=== PATIENT | male | born 1940 | race Caucasian/White ===

== ENCOUNTER 2019-11-22 | Emergency (ER) | payer MEDICARE, OTHER ==
[~2019-11-22] MED LIST: ACTOS45 MG PO; ALDACTONE25 MG PO; AMOX/K CLAV875 M1 PO; ANTIVERT25 MG PO; ASPIRIN LOW DOS81 MG PO; ATORVASTATI80 MG/TAB PO; BENADRYL25 M1 PO; CARVEDILOL3.125 MG PO; CEPHALEXIN500 M1 PO; CHERATUSSIN OR; COLACE100 MG PO; DEXAMETHASON4 MG PO; FLUARIX QUADRIV1 INJ IM; FLUZONE SPLT1 M1 IM; FUROSEMIDE40 MG PO; GABAPENTIN300 MG PO; GLIPIZIDE10 M2 PO; GLYBURIDE5 M1 PO; HYDRALAZINE25 MG PO; ISOSORBIDE DINI10 MG PO; JANUVIA100 MG PO; KEFLEX250 MG PO; KEFLEX500 MG PO; LEVEMIR FL100 UNIT/M SC; LEVOTHYROXIN25 MC1 PO; LISINOPRIL20 M1 PO; LISINOPRIL40 MG PO; LORTAB 5-325 MG1 TAB PO; MEDDOSEPAK OR; METFORMIN1000 MG PO; METFORMIN500 M2 PO; NITREK0.4 MG/HR TD; NITROSTAT0.4 MG SL; NOVOLO1 SC; NOVOLOG FLEXPEN SC; ONE TOUCH ULTRA 100 XX; ONGLYZA5 MG PO; PNEUMOVAX 23 IM; POTASSIUM CHLO10 MEQ PO; PRAVASTATIN20 MG PO; PROCTOCORT1 % EX; REVLIMID PO; TOUJEO SOL300 UNIT/M SC; ZOFRAN ODT4 MG PO; ZOSTAVAX SC; [UNRECOGNIZED DRUG - SUPPLY] XX
[2019-11-22 11:37] LABS: HEMATOCRIT 33.4 % (39.0-50.0); HEMOGLOBIN 10.8 g/dl (14.0-18.0); IMMATURE GRANULOCYTES 0.4 % (0.0-5.0); MEAN CELL VOLUME 96.3 fL CALC (80.0-100.0); MEAN CORPUSCULAR HGB 31.1 pG CALC (26.0-32.0); MEAN CORPUSCULAR HGB CONC 32.3 g/L CALC (32.0-36.0); NEUT# 7.75 thou/uL (1.82-7.42); RED BLOOD COUNT 3.47 mill/uL (4.70-6.10); RED CELL DISTRI WIDTH 12.3 % (11.5-15.5)
[2019-11-22 11:51] LABS: ALBUMIN 3.7 g/dL (3.2-5.0); BILIRUBIN, TOTAL 0.4 mg/dL (0.0-1.4); CREATININE 4.7 mg/dL (0.7-1.3); POTASSIUM 4.4 mmol/l (3.5-5.1); TOTAL PROTEIN 6.8 g/dL (6.3-8.2)
[2019-11-22 12:24] LABS: URINE BILIRUBIN - DIPSTICK NEGATIVE (NEGATIVE); URINE BLOOD DIPSTICK SMALL (NEGATIVE); URINE COLOR YELLOW; URINE GLUCOSE - DIPSTICK NEGATIVE (NEGATIVE); URINE KETONE NEGATIVE (NEGATIVE); URINE NITRITE - DIPSTICK NEGATIVE (Negative); URINE PH 6.5 (4.5-8.0); URINE PROTEIN - DIPSTICK TRACE mg/dL (NEG-TRACE); URINE UROBILINOGEN - DIPSTICK 0.2 E.U./dL (0.2)
[2019-11-22 12:27] LABS: URINE LEUK ESTERASE MODERATE (NEGATIVE)
[2019-11-22 12:28] LABS: URINE BACTERIA FEW hpf; URINE EPITHELIAL CELLS MODERATE EPI/hpf (0-FEW)
== END 2019-11-22 12:22 | disposition left against medical advice (07) ==
PROVIDERS: Emergency Medicine
DX: R07.9 Chest pain, unspecified (principal); I12.9 Hypertensive chronic kidney disease with stage 1 through stage 4 chronic kidney disease, or unspecified chronic kidney disease; N18.9 Chronic kidney disease, unspecified; R82.71 Bacteriuria; Z87.440 Personal history of urinary (tract) infections; Z91.19 Patient's noncompliance with other medical treatment and regimen

== ENCOUNTER 2020-07-24 07:36 | Emergency (ER) | payer MEDICARE, OTHER ==
[~2020-07-24] VITALS: Ht 172.7 cm; Wt 86.0 kg
[2020-07-24] MEDS ORDERED: LEVOTHYROXIN50 MCG PO (07:50)
[2020-07-24] MEDS ORDERED: LASIX 40 MG TAB40 MG PO (07:51)
[2020-07-24] MEDS ORDERED: COREG3.125 MG PO (07:52)
[2020-07-24] MEDS ORDERED: ATORVASTATIN CA10 MG PO (07:52)
[2020-07-24] MEDS ORDERED: ISOSORB DIN10 MG PO (07:53)
[2020-07-24] MEDS ORDERED: CALCITRIOL0.25 MC1 PO (07:53)
[2020-07-24] MEDS ORDERED: ASPIRIN ADULT L81 M2 PO (07:54)
[2020-07-24] MEDS ORDERED: NORCO1 TA1 PO (07:55)
[2020-07-24] MEDS ORDERED: HUMALOG100 UNIT/M SC (07:56)
[2020-07-24] MEDS ORDERED: TOUJEO SOL300 UNIT/M SC (07:57)
[2020-07-24] MEDS ORDERED: PROCRIT 1010000 U/ML IJ (07:58)
[2020-07-24] MEDS ORDERED: SODIUM BICARBI650 MG PO (07:59)
[2020-07-24] MEDS ORDERED: CALPHRON667 MG PO (08:00)
[2020-07-24 08:29] LABS: HEMATOCRIT 34.6 % (39.0-50.0); HEMOGLOBIN 10.7 g/dl (14.0-18.0); IMMATURE GRANULOCYTES 0.3 % (0.0-5.0); MEAN CORPUSCULAR HGB 30.9 pG CALC (26.0-32.0); MEAN CORPUSCULAR HGB CONC 30.9 g/dL CAL (32.0-36.0); NEUT# 5.87 thou/uL (1.82-7.42); RED BLOOD COUNT 3.46 mill/uL (4.70-6.10); RED CELL DISTRI WIDTH 13.3 % (11.5-15.5)
[2020-07-24 08:43] LABS: BILIRUBIN, TOTAL 0.4 mg/dL (0.0-1.4); POTASSIUM 4.9 mmol/l (3.5-5.1); TOTAL PROTEIN 6.8 g/dL (6.3-8.2)
[2020-07-24 08:53] LABS: CREATININE 5.9 mg/dL (0.7-1.3)
[2020-07-24 09:27] LABS: URINE BILIRUBIN - DIPSTICK NEGATIVE (NEGATIVE); URINE BLOOD DIPSTICK LARGE (NEGATIVE); URINE COLOR YELLOW; URINE GLUCOSE - DIPSTICK 100 mg/dL (NEGATIVE); URINE KETONE NEGATIVE (NEGATIVE); URINE NITRITE - DIPSTICK NEGATIVE (Negative); URINE PH 5.5 (4.5-8.0); URINE PROTEIN - DIPSTICK 100 mg/dL (NEG-TRACE); URINE SPECIFIC GRAVITY 1.025; URINE UROBILINOGEN - DIPSTICK 0.2 E.U./dL (0.2)
[2020-07-24 09:28] LABS: URINE BACTERIA MANY hpf; URINE LEUK ESTERASE SMALL (NEGATIVE); URINE RBC >100 RBC/hpf (0-5); URINE RED BLOOD CELL CAST MODERATE lpf; URINE SQUAMOUS EPITHELIAL CELL FEW EPI/hpf (0-FEW)
[2020-07-24] MEDS ORDERED: COLACE100 MG PO (10:23)
[2020-07-24] MEDS ORDERED: MIRALAX3350 N1 PO (10:23)
[2020-07-24] MEDS ORDERED: DULCOLAX5 MG PO (10:23)
[2020-07-24] MEDS ORDERED: MAGNESIUM296 ML/BTL PO (10:23)
[2020-07-24 11:30] VITALS: BP 114/71
== END 2020-07-24 11:40 | disposition home or self-care (01) ==
LOC: ED 07:36
PROVIDERS: Student in an Organized Health Care Education/Training Program
DX: K59.00 Constipation, unspecified (principal); C90.00 Multiple myeloma not having achieved remission; E11.22 Type 2 diabetes mellitus with diabetic chronic kidney disease; I12.9 Hypertensive chronic kidney disease with stage 1 through stage 4 chronic kidney disease, or unspecified chronic kidney disease; N18.4 Chronic kidney disease, stage 4 (severe); R82.71 Bacteriuria; Z79.891 Long term (current) use of opiate analgesic; Z85.46 Personal history of malignant neoplasm of prostate; Z93.50 Unspecified cystostomy status; Z87.440 Personal history of urinary (tract) infections; Z79.4 Long term (current) use of insulin; Z79.899 Other long term (current) drug therapy

== ENCOUNTER 2020-07-29 08:35 | Emergency (ER) | payer MEDICARE, OTHER ==
[~2020-07-29 08:35] MED LIST changes: +ASPIRIN ADULT L81 M2 PO; +ATORVASTATIN CA10 MG PO; +CALCITRIOL0.25 MC1 PO; +CALPHRON667 MG PO; +COREG3.125 MG PO; +DULCOLAX5 MG PO; +HUMALOG100 UNIT/M SC; +ISOSORB DIN10 MG PO; +LASIX 40 MG TAB40 MG PO; +LEVOTHYROXIN50 MCG PO; +MAGNESIUM296 ML/BTL PO; +MIRALAX3350 N1 PO; +NORCO1 TA1 PO; +PROCRIT 1010000 U/ML IJ; +SODIUM BICARBI650 MG PO
== END 2020-07-29 08:47 | disposition expired ==
LOC: ED 08:35
PROC: 0BH17EZ Insertion of Endotracheal Airway into Trachea, Via Natural or Artificial Opening (ICD-10-PCS; principal; 2020-07-29)
PROC: 5A12012 Performance of Cardiac Output, Single, Manual (ICD-10-PCS; 2020-07-29)
DX: I46.9 Cardiac arrest, cause unspecified (principal); C90.00 Multiple myeloma not having achieved remission; I12.9 Hypertensive chronic kidney disease with stage 1 through stage 4 chronic kidney disease, or unspecified chronic kidney disease; E11.22 Type 2 diabetes mellitus with diabetic chronic kidney disease; N18.9 Chronic kidney disease, unspecified; D64.9 Anemia, unspecified; Z79.4 Long term (current) use of insulin; Z85.46 Personal history of malignant neoplasm of prostate; Z87.440 Personal history of urinary (tract) infections; Z79.899 Other long term (current) drug therapy